=== PATIENT | female | born 1995 | race Caucasian/White ===

== ENCOUNTER 2018-10-23 22:46 | Emergency (ER) | payer OTHER, SELFPAY ==
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
[2018-10-24] MEDS ORDERED: Ketorolac Tromethamine 30 MG/ML VIAL ONE (00:35)
[2018-10-24] MEDS ORDERED: Cyclobenzaprine 10 MG TAB ONE (00:35)
== END 2018-10-24 01:04 | disposition home or self-care (01) ==
LOC: ERS 22:46
DX: S16.1XXA Strain of muscle, fascia and tendon at neck level, initial encounter (principal); S60.012A Contusion of left thumb without damage to nail, initial encounter; S60.512A Abrasion of left hand, initial encounter; J45.909 Unspecified asthma, uncomplicated; F41.9 Anxiety disorder, unspecified; Z79.899 Other long term (current) drug therapy; Y04.0XXA Assault by unarmed brawl or fight, initial encounter
CPT/HCPCS: 96372; J1885